=== PATIENT | female | born 1990 | race Caucasian/White ===

== ENCOUNTER 2016-06-29 13:20 | Emergency (ER) | payer OTHER ==
[~2016-06-29] VITALS: Ht 165.1 cm; Wt 131.1 kg
[~2016-06-29 13:20] MED LIST: MACROBID 100 M100 M1 PO
[2016-06-29 14:19] LABS: URINE BILIRUBIN NEGATIVE (Negative); URINE BLOOD NEGATIVE (Negative); URINE COLOR YELLOW; URINE GLUCOSE-RANDOM* NEGATIVE (Negative); URINE KETONES NEGATIVE (Negative); URINE LEUKOCYTES-REFLEX TRACE (Negative); URINE PROTEIN (DIPSTICK) NEGATIVE (Negative); URINE SPECIFIC GRAVITY 1.025 (1.003-1.035); URINE UROBILINOGEN 0.2 E.U./dl (0.2-1.0)
[2016-06-29 14:20] LABS: ABSOLUTE NEUTROPHILS 5.3 thou/uL (1.4-8.2); BASOPHILS 0.9 % (0.0-2.0); EOSINOPHILS 2.1 % (0.0-3.0); HEMATOCRIT 40.5 % (37.0-47.0); HEMOGLOBIN 13.8 gm/dL (12.0-15.0); LYMPHOCYTES 24.8 % (24.0-44.0); MCHC 34.1 % (28.0-37.0); MCV 90.9 fL (80.0-100.0); MONOCYTES 5.9 % (1.0-8.0); PLATELET COUNT 245 thou/uL (150-400); POLYS 66.3 % (36.0-66.0); RBC 4.45 mil/uL (4.20-5.00); RDW 12.3 % (10.5-14.5)
[2016-06-29 14:21] LABS: MANUAL DIFF NO
[2016-06-29 14:27] LABS: CALCIUM 8.6 mg/dL (8.5-10.1); CREATININE 0.6 mg/dL (0.6-1.3); POTASSIUM 4.4 mmol/L (3.5-5.1)
[2016-06-29 14:32] LABS: ALBUMIN 3.3 g/dL (3.4-5.0); TOTAL BILIRUBIN 0.2 mg/dL (<0.1-1.0); TOTAL PROTEIN 7.1 g/dL (6.4-8.2)
[2016-06-29] MEDS ORDERED: IBUPROFEN 600600 M1 PO (15:52)
[2016-06-29 16:16] VITALS: BP 115/78
[2016-07-02 13:11] LABS: CHLAMYDIA TRACHOMATIS-PCR Negative (Negative); NEISSERIA GONORRHEA-PCR Negative (Negative)
[2016-08-03] MEDS ORDERED: TRINATE TABLET1 TAB PO (19:54)
[2016-08-03] MEDS ORDERED: KEFLEX500 MG PO (19:55)
== END 2016-06-29 16:16 | disposition home or self-care (01) ==
LOC: ER 13:20
PROVIDERS: Emergency Medicine
DX: R10.2 Pelvic and perineal pain (principal); Z90.49 Acquired absence of other specified parts of digestive tract; Z88.2 Allergy status to sulfonamides; F10.99 Alcohol use, unspecified with unspecified alcohol-induced disorder

== ENCOUNTER 2017-01-15 18:29 | Emergency (ER) | payer OTHER ==
[~2017-01-15] VITALS: Ht 165.1 cm; Wt 140.6 kg
[~2017-01-15 18:29] MED LIST changes: +IBUPROFEN 600600 M1 PO; +KEFLEX500 MG PO; +TRINATE TABLET1 TAB PO
[2017-01-15 19:03] LABS: HEMOGLOBIN 12.6 gm/dL (12.0-15.0); MCV 88.9 fL (80.0-100.0); RBC 3.94 mil/uL (4.20-5.00); RDW 12.1 % (10.5-14.5); WBC 5.8 thou/uL (4.0-11.0)
[2017-01-15 19:13] LABS: CALCIUM 8.7 mg/dL (8.5-10.1); CREATININE 0.5 mg/dL (0.6-1.0); POTASSIUM 4.3 mmol/L (3.5-5.1)
[2017-01-15] MEDS ORDERED: ZOFRAN ODT4 MG PO (19:40)
[2017-01-15] MEDS ORDERED: FLEXERIL PO (19:43)
[2017-01-15 22:35] VITALS: BP 116/59
== END 2017-01-15 22:45 | disposition short-term general hospital (02) ==
LOC: ER 18:29
PROVIDERS: Emergency Medicine
DX: O46.93 Antepartum hemorrhage, unspecified, third trimester (principal); R10.2 Pelvic and perineal pain; F17.210 Nicotine dependence, cigarettes, uncomplicated; Z3A.30 30 weeks gestation of pregnancy; Z90.49 Acquired absence of other specified parts of digestive tract; Z88.2 Allergy status to sulfonamides

== ENCOUNTER 2017-09-05 20:01 | Emergency (ER) | payer OTHER ==
[~2017-09-05] VITALS: Ht 175.3 cm; Wt 142.9 kg
[~2017-09-05 20:01] MED LIST changes: +FLEXERIL PO; +ZOFRAN ODT4 MG PO
[2017-09-05] MEDS ORDERED: TYLENOL EXTRA500 MG PO (20:24)
[2017-09-05] MEDS ORDERED: HYDROCODONE-AP1 EAC6 PO (20:51)
[2017-09-05] MEDS ORDERED: FLEXERIL PO (20:51)
[2017-09-05] MEDS ORDERED: IBUPROFEN 600600 M1 PO (20:51)
[2018-02-01] MEDS ORDERED: NORFLEX100 MG PO (19:11)
== END 2017-09-05 21:31 | disposition home or self-care (01) ==
LOC: ER 20:01
DX: M54.30 Sciatica, unspecified side (principal); F17.210 Nicotine dependence, cigarettes, uncomplicated; Z88.2 Allergy status to sulfonamides; Z90.49 Acquired absence of other specified parts of digestive tract; Z98.84 Bariatric surgery status

== ENCOUNTER 2017-10-14 09:21 | Emergency (ER) | payer OTHER ==
[~2017-10-14] VITALS: Ht 175.3 cm; Wt 143.3 kg
[~2017-10-14 09:21] MED LIST changes: +HYDROCODONE-AP1 EAC6 PO; +TYLENOL EXTRA500 MG PO
[2017-10-14 09:22] VITALS: BP 121/63
[2017-10-14] MEDS ORDERED: PREDNISONE 10 M10 MG PO (09:54)
[2017-10-14] MEDS ORDERED: NORFLEX100 MG PO (09:54)
== END 2017-10-14 10:16 | disposition home or self-care (01) ==
LOC: ER 09:21
DX: M54.42 Lumbago with sciatica, left side (principal); F17.210 Nicotine dependence, cigarettes, uncomplicated; Z90.49 Acquired absence of other specified parts of digestive tract; Z88.2 Allergy status to sulfonamides

== ENCOUNTER 2017-12-11 23:05 | Emergency (ER) | payer OTHER ==
[~2017-12-11] VITALS: Ht 165.1 cm; Wt 104.3 kg
[~2017-12-11 23:05] MED LIST changes: +NORFLEX100 MG PO; +PREDNISONE 10 M10 MG PO
[2017-12-11 23:16] VITALS: BP 120/88
[2017-12-12] MEDS ORDERED: NORFLEX100 MG PO (00:07)
[2017-12-12] MEDS ORDERED: NAPROSYN500 MG PO (00:07)
[2017-12-12] MEDS ORDERED: ULTRAM 50MG TAB50 MG PO (00:07)
[2017-12-12 00:11] LABS: AMP/METHAMP Negative (Negative); BARBITURATES Negative (Negative); BENZODIAZEPINES Negative (Negative); COCAINE Negative (Negative); METHADONE Negative (Negative); OPIATES Negative (Negative); PCP Negative (Negative)
== END 2017-12-12 00:19 | disposition home or self-care (01) ==
LOC: ER 23:05
PROVIDERS: Emergency Medicine
DX: S39.012A Strain of muscle, fascia and tendon of lower back, initial encounter (principal); M54.40 Lumbago with sciatica, unspecified side; Z90.49 Acquired absence of other specified parts of digestive tract; Z98.84 Bariatric surgery status; F17.210 Nicotine dependence, cigarettes, uncomplicated; Z88.2 Allergy status to sulfonamides; X58.XXXA Exposure to other specified factors, initial encounter; Y93.89 Activity, other specified; Y92.89 Other specified places as the place of occurrence of the external cause; Y99.8 Other external cause status

== ENCOUNTER 2018-04-19 17:24 | Emergency (ER) | payer OTHER ==
[~2018-04-19] VITALS: Ht 167.6 cm; Wt 108.9 kg
[~2018-04-19 17:24] MED LIST changes: +NAPROSYN500 MG PO; +ULTRAM 50MG TAB50 MG PO
[2018-04-19 18:20] LABS: URINE BLOOD 1+ (Negative); URINE CLARITY CLEAR; URINE COLOR YELLOW; URINE GLUCOSE-RANDOM* NEGATIVE (Negative); URINE KETONES TRACE (Negative); URINE NITRITE-REFLEX NEGATIVE (Negative); URINE PROTEIN (DIPSTICK) NEGATIVE (Negative); URINE SPECIFIC GRAVITY >= 1.030 (1.005-1.035); URINE UROBILINOGEN 0.2 E.U./dl (0.2-1.0)
[2018-04-19 18:26] LABS: ICTOTEST (BILI CONFIRMATORY) Negative (Negative); URINE BILIRUBIN NEGATIVE (Negative); URINE LEUKOCYTES-REFLEX TRACE (Negative)
[2018-04-19 18:27] LABS: SQUAMOUS >10 Many /LPF (0-3)
[2018-04-19 18:28] LABS: BACTERIA-REFLEX None Seen /HPF (None Seen); CASTS None Seen /LPF (None Seen); CRYSTALS None Seen /LPF (None Seen); URINE RBC 3-10 Few /HPF (0-2)
[2018-04-19 18:29] LABS: URINE WBC-REFLEX 0-5 Rare /HPF (0-5)
[2018-04-19] MEDS ORDERED: PEPCID20 MG PO (19:20)
[2018-04-19] MEDS ORDERED: FLAGYL500 MG PO (19:20)
[2018-04-19] MEDS ORDERED: PREDNISONE 20 M20 MG PO (19:20)
[2018-04-19 19:25] VITALS: BP 132/85
== END 2018-04-19 19:26 | disposition home or self-care (01) ==
LOC: ER 17:24
PROVIDERS: Physician Assistant
DX: L29.9 Pruritus, unspecified (principal); T36.0X5A Adverse effect of penicillins, initial encounter; N76.0 Acute vaginitis; B96.89 Other specified bacterial agents as the cause of diseases classified elsewhere; Z98.84 Bariatric surgery status; Y92.89 Other specified places as the place of occurrence of the external cause

== ENCOUNTER 2018-07-11 05:36 | Emergency (ER) | payer OTHER ==
[~2018-07-11] VITALS: Ht 165.1 cm; Wt 136.1 kg
[~2018-07-11 05:36] MED LIST changes: +FLAGYL500 MG PO; +PEPCID20 MG PO; +PREDNISONE 20 M20 MG PO
[2018-07-11 06:11] LABS: URINE BILIRUBIN NEGATIVE (Negative); URINE BLOOD NEGATIVE (Negative); URINE CLARITY CLEAR; URINE COLOR YELLOW; URINE GLUCOSE-RANDOM* NEGATIVE (Negative); URINE KETONES NEGATIVE (Negative); URINE NITRITE-REFLEX NEGATIVE (Negative); URINE PROTEIN (DIPSTICK) NEGATIVE (Negative); URINE UROBILINOGEN 0.2 E.U./dl (0.2-1.0)
[2018-07-11 06:12] LABS: URINE LEUKOCYTES-REFLEX NEGATIVE (Negative)
[2018-07-11] MEDS ORDERED: FLAGYL500 M1 PO (07:42)
[2018-07-11 08:16] VITALS: BP 113/66
== END 2018-07-11 08:16 | disposition home or self-care (01) ==
LOC: ER 05:36
PROVIDERS: Student in an Organized Health Care Education/Training Program
DX: N76.0 Acute vaginitis (principal); B96.89 Other specified bacterial agents as the cause of diseases classified elsewhere; F17.210 Nicotine dependence, cigarettes, uncomplicated; Z90.49 Acquired absence of other specified parts of digestive tract; Z88.2 Allergy status to sulfonamides

== ENCOUNTER 2018-10-10 16:51 | Emergency (ER) | payer OTHER ==
[~2018-10-10] VITALS: Ht 165.1 cm; Wt 135.2 kg
[~2018-10-10 16:51] MED LIST changes: +FLAGYL500 M1 PO
[2018-10-10 17:46] LABS: ABSOLUTE NEUTROPHILS 2.5 thou/uL (1.4-8.2); EOSINOPHILS 3.9 % (0.0-3.0); HEMATOCRIT 39.2 % (37.0-47.0); HEMOGLOBIN 13.3 gm/dL (12.0-15.0); LYMPHOCYTES 37.9 % (24.0-44.0); MCH 30.5 pg (26.0-34.0); MCHC 33.9 g/dL (28.0-37.0); MONOCYTES 7.5 % (1.0-8.0); PLATELET COUNT 228 thou/uL (150-400); POLYS 49.7 % (36.0-66.0); RBC 4.35 mil/uL (4.20-5.00)
[2018-10-10 17:58] LABS: CALCIUM 8.3 mg/dL (8.5-10.1); CREATININE 0.7 mg/dL (0.6-1.0); POTASSIUM 3.5 mmol/L (3.5-5.1)
[2018-10-10 18:05] LABS: ALBUMIN 3.5 g/dL (3.4-5.0); MAGNESIUM 1.8 mg/dL (1.8-2.4); TOTAL BILIRUBIN 0.1 mg/dL (<0.1-1.0); TOTAL PROTEIN 6.8 g/dL (6.4-8.2)
[2018-10-10] MEDS ORDERED: NORCO 5-325 TA1 EACH PO (18:41)
[2018-10-10] MEDS ORDERED: MOBIC7.5 MG PO (18:41)
[2018-10-10] MEDS ORDERED: SENNA8.6 MG PO (18:41)
[2018-10-10 19:06] VITALS: BP 123/74
== END 2018-10-10 19:40 | disposition home or self-care (01) ==
LOC: ER 16:51
PROVIDERS: Physician Assistant
DX: I83.93 Asymptomatic varicose veins of bilateral lower extremities (principal); F17.210 Nicotine dependence, cigarettes, uncomplicated; Z98.84 Bariatric surgery status; Z88.2 Allergy status to sulfonamides

== ENCOUNTER 2019-02-02 23:20 | Emergency (ER) | payer OTHER ==
[~2019-02-02] VITALS: Ht 165.1 cm; Wt 140.6 kg
[~2019-02-02 23:20] MED LIST changes: +MOBIC7.5 MG PO; +NORCO 5-325 TA1 EACH PO; +SENNA8.6 MG PO
[2019-02-03 00:51] LABS: CALCIUM 8.8 mg/dL (8.5-10.1); CREATININE 0.7 mg/dL (0.6-1.0); POTASSIUM 4.1 mmol/L (3.5-5.1)
[2019-02-03 02:15] VITALS: BP 108/63
== END 2019-02-03 02:43 | disposition left against medical advice (07) ==
LOC: ER 23:20
PROVIDERS: Emergency Medicine
DX: P15.8 Other specified birth injuries (principal); F17.210 Nicotine dependence, cigarettes, uncomplicated; Z90.49 Acquired absence of other specified parts of digestive tract; Z88.2 Allergy status to sulfonamides